=== PATIENT | male | born 2000 | race American Indian/Alaskan Native ===

== ENCOUNTER 2018-10-02 16:41 | Emergency (ER) | payer OTHER ==
[2018-10-02 17:13] VITALS: BP 121/67
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
[2018-10-02] MEDS ORDERED: IBUPROFEN PO ONE (19:42)
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
--- NOTE | 2018-10-06 14:14 | XRay Report ---
FINAL REPORT EXAM: XR KNEE 1-2V RT HISTORY: pain, fall with right knee pain TECHNIQUE: AP and lateral views of the right knee PRIORS: None. FINDINGS: No acute fracture or dislocation is seen. The soft tissues demonstrate a large suprapatellar joint e ffusion. Joint spaces are maintained and bony mineralization is normal. IMPRESSION: No acute bony abnormality of the right knee. Large joint effusion
== END 2018-10-02 21:11 | disposition home or self-care (01) ==
LOC: ED 16:41
DX: S86.912A Strain of unspecified muscle(s) and tendon(s) at lower leg level, left leg, initial encounter (principal); F17.200 Nicotine dependence, unspecified, uncomplicated; V87.8XXA Person injured in other specified noncollision transport accidents involving motor vehicle (traffic), initial encounter; Y93.89 Activity, other specified; Y92.488 Other paved roadways as the place of occurrence of the external cause; Y99.8 Other external cause status